=== PATIENT | male | born 1930 | race Caucasian/White ===

== ENCOUNTER 2017-05-24 08:28 | Observation (INO) | payer MEDICARE, BC ==
[2017-05-24 09:07] LABS: ABNORMAL IP MESSAGE 1; HEMOGLOBIN 7.1 g/dl (14.0-18.0); MEAN CORPUSCULAR HGB CONC 33.8 g/dl (32.0-37.0); MEAN CORPUSCULAR VOLUME 109.4 fl (82.0-101.0); MEAN PLATELET VOLUME 11.2 fl (7.4-10.4); PLATELET COUNT 74 10^3/UL (140-415); POSITIVE DIFF @See below; RED BLOOD COUNT 1.92 10^6/ul (4.70-6.10); RED CELL DISTRIBUTION WIDTH 18.4 % (11.5-14.5)
[2017-05-24 09:07] LABS: WHITE BLOOD COUNT 1.1 10^3/ul (4.8-10.8)
[2017-05-24 09:22] LABS: INR 1.11; PROTIME 14.5 Sec (11.9-14.9); PT RATIO 1.1
[2017-05-24 09:23] LABS: HOLD TRANSMISSIONS 1; PARTIAL THROMBOPLASTIN TIME 29.7 Sec (25.0-35.0)
[2017-05-24 09:24] LABS: ADD MAN DIFF? YES
[2017-05-24 09:25] LABS: ALANINE AMINOTRANSFERASE 32 IU/L (13-69); ALBUMIN 3.5 g/dl (3.3-4.9); ALBUMIN/GLOBULIN RATIO 1.34; ALKALINE PHOSPHATASE 55 IU/L (42-121); ANION GAP 12 (8-16); ASPARTATE AMINO TRANSFERASE 19 IU/L (15-46); BILIRUBIN,INDIRECT 0.4 mg/dl (0-1.1); BILIRUBIN,TOTAL 0.4 mg/dl (0.2-1.3); CARBON DIOXIDE 26 mmol/L (21-31); CHLORIDE 109 mmol/L (97-110); GLUCOSE 113 mg/dl (70-220); TOTAL PROTEIN 6.1 g/dl (6.1-8.1)
[2017-05-24 09:32] LABS: BLOOD UREA NITROGEN 19 mg/dl (7-20); CALCIUM 8.5 mg/dl (8.4-10.2); CREATININE 0.86 mg/dl (0.61-1.24); POTASSIUM 4.4 mmol/L (3.5-5.1); SODIUM 143 mmol/L (135-144)
[2017-05-24] MEDS ORDERED: IODIXANOL LOCM 100 ML BTL (10:08)
[2017-05-24] MEDS ORDERED: FENTAnyl 50 MCG/ML VIAL (10:08)
[2017-05-24] MEDS ORDERED: NITROGLYCERIN (IC) 100 MCG/ML INJ (10:08)
[2017-05-24] MEDS ORDERED: VERAPAMIL 5 MG INJ (10:08)
[2017-05-24] MEDS ORDERED: MIDAZOLAM 1 MG/ML 2 ML INJ (10:08)
[2017-05-24] MEDS ORDERED: LIDOCAINE 1% (MDV) 20 ML INJ (10:08)
[2017-05-24] MEDS ORDERED: HEPARIN 1000 UNITS/ML 10 ML INJ (10:08)
[2017-05-24] MEDS ORDERED: EPINEPHrine 0.1 MG/ML SYG (10:54)
[2017-05-24] MEDS ORDERED: EPHEDrine SULFATE 50 MG/5 ML SYG ×2 (10:54→10:55)
[2017-05-24] MEDS ORDERED: AL HYDROX/MG HYDROX/SIMETH 30 ML CUP PO (11:30)
[2017-05-24] MEDS ORDERED: ACETAMINOPHEN 325 MG TAB PO (11:30)
[2017-05-24 13:18] LABS: ANISOCYTOSIS 1+ (0-0); BAND NEUTROPHILS % (M) 4 % (0-4); EOSINOPHILS % (M) 1 % (0-7); ERYTHROBLAST% (NRBC) (M) 1 % (0-0); GIANT THROMBO% (M) 3 % (0-0); HYPOCHROMASIA 1+ (0-0); LYMPHOCYTES #M 0.7 10^3/ul (0.8-2.9); LYMPHOCYTES % (M) 66 % (15-51); MONOCYTES % (M) 1 % (0-11); MYELOCYTES % (M) 1 % (0-0); OVALOCYTES 1+ (0-0); PLATELET ESTIMATE NORMAL; POIKILOCYTOSIS 2+ (0-0); POLYCHROMASIA 1+ (0-0); REACTIVE LYMPHOCYTES% (M) 4 % (0-0); SEG NEUT #M 0.3 10^3/ul (1.6-7.5); SEGMENTED NEUTROPHILS (M) % 25 % (39-77); SMUDGE%M 2 % (0-0)
[2017-05-24] MEDS: FUROSEMIDE 40 MG INJ IV (16:49)
[2017-05-24] MEDS ORDERED: ONDANSETRON 4 MG INJ IV (17:00)
[2017-05-24] MEDS ORDERED: ACETAMINOPHEN 500 MG TAB PO (17:00)
[2017-05-24] MEDS: ATORVASTATIN 40 MG TAB PO (22:17)
[2017-05-24] MEDS: ZOLPIDEM 5 MG TAB PO (22:17)
[2017-05-24] MEDS: SOD CHLORIDE 0.9% 250 ML IV* (22:23)
[2017-05-25] MEDS: PANTOPRAZOLE (EC) 40 MG TAB PO (05:57)
[2017-05-25] MEDS: ASPIRIN (EC) 81 MG TAB PO (09:09)
[2017-05-25 09:56] LABS: ABNORMAL IP MESSAGE 1; HEMATOCRIT 24.1 % (42.0-52.0); HEMOGLOBIN 8.2 g/dl (14.0-18.0); MEAN CORPUSCULAR HEMOGLOBIN 35.2 pg (29.0-33.0); MEAN CORPUSCULAR VOLUME 103.4 fl (82.0-101.0); MEAN PLATELET VOLUME 9.3 fl (7.4-10.4); PLATELET COUNT 52 10^3/UL (140-415); POSITIVE DIFF @See below; RED BLOOD COUNT 2.33 10^6/ul (4.70-6.10); RED CELL DISTRIBUTION WIDTH 20.1 % (11.5-14.5)
[2017-05-25 09:56] LABS: WHITE BLOOD COUNT 1.2 10^3/ul (4.8-10.8)
[2017-05-25 09:57] LABS: ADD MAN DIFF? YES
[2017-05-25 10:12] LABS: MAGNESIUM 2.1 mg/dl (1.7-2.5)
[2017-05-25 10:28] LABS: ANION GAP 11 (8-16); BLOOD UREA NITROGEN 17 mg/dl (7-20); CALCIUM 8.4 mg/dl (8.4-10.2); CARBON DIOXIDE 26 mmol/L (21-31); CHLORIDE 108 mmol/L (97-110); CREATININE 0.81 mg/dl (0.61-1.24); GLUCOSE 139 mg/dl (70-220); SODIUM 141 mmol/L (135-144)
[2017-05-25 10:34] LABS: ANISOCYTOSIS 1+ (0-0); BAND NEUTROPHILS #M 0.1 10^3/ul (0.0-0.6); BAND NEUTROPHILS % (M) 10 % (0-4); BURR CELLS 1+ (0-0); EOSINOPHILS % (M) 3 % (0-7); LYMPHOCYTES #M 0.6 10^3/ul (0.8-2.9); LYMPHOCYTES % (M) 51 % (15-51); MICROCYTOSIS 1+ (0-0); MONOCYTES % (M) 2 % (0-11); PLATELET ESTIMATE DECREASED; POIKILOCYTOSIS 1+ (0-0); POLYCHROMASIA 2+ (0-0); REACTIVE LYMPHOCYTES% (M) 4 % (0-0); SEG NEUT #M 0.4 10^3/ul (1.6-7.5); SEGMENTED NEUTROPHILS (M) % 30 % (39-77); SMUDGE%M 4 % (0-0)
[2017-05-25 13:53] LABS: IMMEDIATE SPIN CROSSMATCH 1 5
[2017-05-25] MEDS: SOD CHLORIDE 0.9% 250 ML IV* (14:00)
[2017-05-25] MEDS: FUROSEMIDE 20 MG INJ IV (17:21)
[2017-05-25] MEDS: ATORVASTATIN 40 MG TAB PO (21:43)
[2017-05-25] MEDS: ZOLPIDEM 5 MG TAB PO (22:48)
[2017-05-26] MEDS: PANTOPRAZOLE (EC) 40 MG TAB PO (06:54)
[2017-05-26 11:13] LABS: ABNORMAL IP MESSAGE 1; HEMATOCRIT 29.1 % (42.0-52.0); HEMOGLOBIN 9.7 g/dl (14.0-18.0); MEAN CORPUSCULAR HEMOGLOBIN 33.8 pg (29.0-33.0); MEAN CORPUSCULAR HGB CONC 33.3 g/dl (32.0-37.0); MEAN CORPUSCULAR VOLUME 101.4 fl (82.0-101.0); MEAN PLATELET VOLUME 8.9 fl (7.4-10.4); PLATELET COUNT 53 10^3/UL (140-415); POSITIVE DIFF @See below; RED BLOOD COUNT 2.87 10^6/ul (4.70-6.10)
[2017-05-26 11:13] LABS: WHITE BLOOD COUNT 1.2 10^3/ul (4.8-10.8)
[2017-05-26 11:21] LABS: ADD MAN DIFF? YES
[2017-05-26 12:16] LABS: ANISOCYTOSIS 1+ (0-0); BAND NEUTROPHILS % (M) 3 % (0-4); GIANT THROMBO% (M) 2 % (0-0); LYMPHOCYTES #M 0.6 10^3/ul (0.8-2.9); LYMPHOCYTES % (M) 55 % (15-51); MICROCYTOSIS 1+ (0-0); MONOCYTES % (M) 3 % (0-11); PLATELET ESTIMATE SIG DECREASED; POIKILOCYTOSIS 1+ (0-0); POLYCHROMASIA 2+ (0-0); REACTIVE LYMPHOCYTES% (M) 5 % (0-0); SEG NEUT #M 0.4 10^3/ul (1.6-7.5); SEGMENTED NEUTROPHILS (M) % 34 % (39-77); SMUDGE%M 1 % (0-0)
[2017-05-26] MEDS ORDERED: ASPIRIN (EC) 81 MG TAB PO (13:00)
== END 2017-05-26 14:42 | disposition home or self-care (01) ==
LOC: SDS 08:28 → REC 11:26 → MS4 22:02
DX: I25.110 Atherosclerotic heart disease of native coronary artery with unstable angina pectoris (principal); D46.9 Myelodysplastic syndrome, unspecified; I35.0 Nonrheumatic aortic (valve) stenosis; D62 Acute posthemorrhagic anemia; Z87.891 Personal history of nicotine dependence
CPT/HCPCS: 36430; 80048; 80053; 83735; 85025; 85610; 85730; 86644; 86850; 86870; 86900; 86901; 86920; 93005; 93306; 93454; 99217; G0378; J1940